=== PATIENT | female | born 1970 | race Caucasian/White ===

== ENCOUNTER 2023-01-04 08:55 | Day surgery (SDC) | payer MEDICAID ==
[~2023-01-04] VITALS: Ht 144.8 cm; Wt 66.2 kg
[2023-01-04] MEDS ORDERED: DIPHENHYDRAMINE INJ 50 MG/ML VIAL ONE (12:06)
[2023-01-04] MEDS ORDERED: IOPAMIDOL 50 ML VIAL IV ONE (12:06)
[2023-01-04] MEDS ORDERED: methylPREDNISolone ACETATE 40 MG/ML ONE (12:06)
[2023-01-04] MEDS ORDERED: fentaNYL CITRATE/PF 100 MCG/2 ML AMP ONE (12:06)
[2023-01-04] MEDS ORDERED: NORMAL SALINE 10 ML VIAL ONE (12:06)
[2023-01-04] MEDS ORDERED: LIDOCAINE 2%, 20 ML MDV ONE (12:06)
[2023-01-04] MEDS: MIDAZOLAM HCL 5 MG/5 ML VIAL ONE ×2 (12:53→12:58)
[2023-01-04 17:39] VITALS: BP_SYST 119
== END 2023-01-04 14:20 | disposition home or self-care (01) ==
LOC: SMU 08:55 → SDS 08:55
PROVIDERS: ATTEND Internal Medicine
DX: M51.16 Intervertebral disc disorders with radiculopathy, lumbar region (principal); M32.9 Systemic lupus erythematosus, unspecified; Z20.822 Contact with and (suspected) exposure to COVID-19; Z79.899 Other long term (current) drug therapy
CPT/HCPCS: 62323; 87426; 36415; J1200; J2001; J1030; J2250; Q9967; 76000; J3010

== ENCOUNTER 2023-05-17 08:57 | Day surgery (SDC) | payer MEDICAID ==
[~2023-05-17] VITALS: Ht 147.3 cm; Wt 61.7 kg
[2023-05-17] MEDS ORDERED: DIPHENHYDRAMINE INJ 50 MG/ML VIAL ONE (11:43)
[2023-05-17] MEDS: MIDAZOLAM HCL 5 MG/5 ML VIAL ONE ×2 (12:18→13:10)
[2023-05-17] MEDS: fentaNYL CITRATE/PF 100 MCG/2 ML AMP ONE ×2 (12:21→12:25)
[2023-05-17 12:28] VITALS: O2SAT 96
[2023-05-17 14:49] VITALS: BP_SYST 119; PULSE 63; RESP 20
== END 2023-05-17 13:17 | disposition home or self-care (01) ==
LOC: SDS 08:57 → SMU 08:58 → SDS 13:17
PROVIDERS: ATTEND Internal Medicine
DX: M51.16 Intervertebral disc disorders with radiculopathy, lumbar region (principal); M32.9 Systemic lupus erythematosus, unspecified; Z79.899 Other long term (current) drug therapy
CPT/HCPCS: 64483; J1200; J2250; J3010; 76000

== ENCOUNTER 2023-11-08 07:45 | Day surgery (SDC) | payer MEDICAID ==
[~2023-11-08] VITALS: Ht 147.3 cm; Wt 62.1 kg
[2023-11-08] MEDS ORDERED: NORMAL SALINE 10 ML VIAL ONE (09:00)
[2023-11-08] MEDS ORDERED: IOHEXOL 300 mgI/mL, 50 mL INFUS..BTL IV ONE (09:00)
[2023-11-08] MEDS ORDERED: DEXAMETHASONE SOD PHOSPHATE 4 MG/ML VIAL ONE (09:00)
[2023-11-08] MEDS ORDERED: LIDOCAINE 2%, 20 ML MDV ONE (09:00)
[2023-11-08] MEDS ORDERED: DIPHENHYDRAMINE INJ 50 MG/ML VIAL ONE (09:24)
[2023-11-08] MEDS: fentaNYL CITRATE/PF 100 MCG/2 ML AMP ONE (09:57)
[2023-11-08] MEDS: MIDAZOLAM HCL 5 MG/5 ML VIAL ONE (09:57)
[2023-11-08] MEDS: KETOROLAC TROMETHAMINE 30 MG VIAL ONE (10:25)
[2023-11-08 12:30] VITALS: O2SAT 98
[2023-11-08 13:23] VITALS: BP_SYST 119; PULSE 68; RESP 16; TEMP 98
== END 2023-11-08 11:50 | disposition home or self-care (01) ==
LOC: SDS 07:45 → SMU 07:47 → SDS 11:50
PROVIDERS: ATTEND Internal Medicine
DX: M51.16 Intervertebral disc disorders with radiculopathy, lumbar region (principal); M32.9 Systemic lupus erythematosus, unspecified; M79.10 Myalgia, unspecified site; Z79.899 Other long term (current) drug therapy
CPT/HCPCS: 64483; J1100; J1885; J2250; J3010; Q9967; 76000; J1200; J2001

== ENCOUNTER 2024-06-05 12:40 | Day surgery (SDC) | payer MEDICAID ==
[~2024-06-05] VITALS: Ht 147.3 cm; Wt 61.7 kg
[~2024-06-05 12:40] MED LIST: DEXAMETHASONE SOD PHOSPHATE 4 MG/ML VIAL ONE; IOHEXOL 300 mgI/mL, 50 mL INFUS..BTL IV ONE; LIDOCAINE MPF 2% 20 MG/1 ML, 5 ML VIAL INH ONE; NORMAL SALINE 10 ML VIAL ONE
[2024-06-05] MEDS ORDERED: fentaNYL CITRATE/PF 100 MCG/2 ML AMP ONE (13:33)
[2024-06-05 14:10] VITALS: O2SAT 99
[2024-06-05] MEDS: fentaNYL CITRATE/PF 100 MCG/2 ML AMP IVP ONE ×2 (14:28)
[2024-06-05] MEDS ORDERED: MIDAZOLAM HCL 5 MG/5 ML VIAL IVP ONE ×2 (14:28→14:32)
[2024-06-05] MEDS: MIDAZOLAM HCL 5 MG/5 ML VIAL IVP ONE ×2 (14:28→14:32)
[2024-06-05] MEDS: MIDAZOLAM HCL 5 MG/5 ML VIAL ONE (14:29)
[2024-06-07 13:13] VITALS: BP_SYST 117; PULSE 65; RESP 10
== END 2024-06-05 15:14 | disposition home or self-care (01) ==
LOC: SDS 12:40 → SMU 12:44 → SDS 15:14
PROVIDERS: ATTEND Internal Medicine
DX: M51.16 Intervertebral disc disorders with radiculopathy, lumbar region (principal); M79.10 Myalgia, unspecified site; J45.909 Unspecified asthma, uncomplicated; K21.9 Gastro-esophageal reflux disease without esophagitis; F41.9 Anxiety disorder, unspecified; F32.A Depression, unspecified; M19.90 Unspecified osteoarthritis, unspecified site; M06.9 Rheumatoid arthritis, unspecified; Z79.899 Other long term (current) drug therapy
CPT/HCPCS: 64483; J1100; J2250; J3010; Q9967; 76000